=== PATIENT | female | born 2000 | race Caucasian/White ===

== ENCOUNTER 2019-12-27 10:39 | Emergency (ER) | payer MEDICAID, SELFPAY ==
[2019-12-27 11:14] VITALS: BP 105/88; PULSE 70; RESP 18; TEMP 37; O2SAT 99; BMI 20.9
--- NOTE | 2019-12-27 11:22 | HMH.EDUTC ---
[facility] Disposition Clinical Impression: COVID-19 Disposition: Home, Self-Care Condition on Discharge: Good Instructions: Preventing the Spread of Coronavirus Discharge Instructions Additional Instructions: Drink plenty of fluids. Take tylenol for pain or fever. Take the medications as directed. Follow up with your regular doctor. GO TO THE ER FOR ANY WORSENING SYMPTOMS Referrals: Wenceslao Baird [Primary Care Provider] - Time of Disposition: 11:22 Medical Decision Making - Medical Records Medical records reviewed: No: I reviewed the patient's medical records. - Omar Inquiry Pt receiving controlled substance: No Vital Signs: 12/27/19 11:14 12/27/19 11:41 Temperature 98.6 F 98.6 F Temperature Source Oral Oral Pulse Rate 70 Pulse Rate [Radial] 70 Respiratory Rate 18 18 Blood Pressure 105/88 L Blood Pressure [Right Arm] 105/88 L Blood Pressure Mean [Right Arm] 93 Blood Pressure Source Automatic Cuff Blood Pressure Source [Right Arm] Automatic Cuff Blood Pressure Position Sitting Blood Pressure Position [Right Arm] Sitting 02 Sat by Pulse Oximetry 99 Oxygen Delivery Method Room Air Room Air Orders (Tests/Meds): ORDERS Category Date Time Status Covid-19 Nasal PCR Sendout [facility] 12/27/19 11:09 Received [facility] HPI - General Stated complaint: Covid test Time Seen by Provider: 12/27/19 11:22 Mode of Arrival: Ambulatory Source of Information: Patient Limitations: No Limitations Description of Symptoms (Recalled from Triage Doc. by RN): covid test HEENT Symptoms (Recalled from RN notes): No Resp Symptoms (Recalled from RN notes): No Skin Symptoms (Recalled from RN notes): No MS Symptoms (Recalled from RN notes): No Functional Status (Recalled from RN notes): wnl - History of Present Illness Provider Complaint: She was positive for covid last week. She denies any symptoms for the past 4 days. 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 - Related Data Home Medications Medication Instructions Recorded Confirmed No Known Home Medications 08/10/18 08/10/18 Allergies Allergy/AdvReac Type Severity Reaction Status Date / Time No Known Allergies Allergy Verified 08/10/18 10:57 - Worker's Comp Is this a Worker's Comp case?: No [facility] History - Hepatitis A Screen Drug use history?: No High risk sexual behaviors?: No History of sexually transmitted infection?: No Currently employed?: No Childcare worker?: No Do you have indoor plumbing?: Yes Do you have electricity?: Yes Attestation statement:: This patient has been screened for Hepatitis A risk factors. I have reviewed the patient's past medical history: Yes - Social History Smoking Status: Current every day smoker Tobacco Type: cigarettes Alcohol Intake: never Occupational Status: employed Housing: house ROS Obtained: Yes All systems reviewed & no additional complaints - Constitutional Constitutional: Reports system reviewed and no additional complaints, except as docu - Eyes Eyes: Reports system reviewed and no additional complaints, except as docu - ENT Ears, Nose, Mouth, and Throat: Reports system reviewed and no additional complaints, except as docu - Cardiovascular Cardiovascular: Reports system reviewed and no additional complaints, except as docu - Respiratory Respiratory: Yes system reviewed and no additional complaints, except as docu - Gastrointestinal Gastrointestingal: Reports: system reviewed and no additional complaints, except as docu Physical Exam - General General appearance: alert, in no apparent distress - Head Head exam: atraumatic, normocephalic, normal inspection - Eye Eye exam: Present: normal appearance, PERRL, EOMI - ENT ENT exam: Present: normal exam, normal oropharynx, mucous membranes moist, TM's normal bilaterally, normal external ear exam - Neck Neck exam: Present: normal inspection
[2019-12-27 11:41] VITALS: BP 105/88; PULSE 70; RESP 18; TEMP 37; O2SAT 99
[2019-12-28 14:04] LABS: Covid-19 Nasal PCR Sendout Lex Positive
--- NOTE | 2019-12-28 14:31 | PC.NURSE ---
Patient notified of positive COVID results. states that she will not be staying in quarantine because this was a retest.
== END 2019-12-27 11:42 | disposition home or self-care (01) ==
PROVIDERS: Emergency Provider Nurse Practitioner Family; PCP Family Medicine
DX: U07.1 COVID-19 (principal); F17.210 Nicotine dependence, cigarettes, uncomplicated
CPT/HCPCS: 99201; U0004

== ENCOUNTER → 2020-01-30 13:29 | Outpatient (CLI) | payer MEDICAID, SELFPAY ==
--- NOTE | 2020-01-30 13:29 | US_ITS ---
PROCEDURE: US BREAST RT COMPLETE Referring Doctor: Kapil Abbott Patient Age:19Y CLINICAL INDICATION: Palpable lump in RT Breast COMPARISON: CT ABDPELW/O CT ABD PELVIS W/O CONTRAST from 10/27/2015 FINDINGS: Images initially reviewed by Dr. Mahajan with study down dictated by Dr. Parada There is a background of dense breast tissue dense fibrous developing breast character typical for 19-year-old The palpable area right breast 10 o'clock position corresponds with fairly homogeneous solid area which measures overall up to 2.5 cm x 1.4 cm.. There is lobulation along the upper portion of this area. This the most compatible with a benign fibroadenoma with this appearance and this age patient.. Appears to be another smaller fiber adenoma at 11 o'clock but similar homogeneous solid nodule architecture. This 2nd area measures 1.8 cm in length x 7.4 mm. Small benign nodes are seen towards the right axillary region. 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 This measures 2.5 cm x 1.4 cm There is a 2nd smaller solid nodule at 11 o'clock measuring 1.8 cm. Compatible with a 2nd smaller fibroadenoma Dictated by: Torres Parada MD 02/11/2020 12:11 Torres Parada MD in [facility] 02/11/2020 12:11
== END ==
PROVIDERS: PCP Family Medicine; Visit Provider Nurse Practitioner Obstetrics & Gynecology
DX: N63.10 Unspecified lump in the right breast, unspecified quadrant (principal)
CPT/HCPCS: 76641

== ENCOUNTER → 2020-05-05 12:16 | Outpatient (CLI) | payer MEDICAID, SELFPAY ==
--- NOTE | 2020-05-05 13:02 | US_ITS ---
Accession No. : [id number] Patient Name / ID : Avtar Velez / [id number] Exam Date : 05/05/2020 13:02:26 ( Final ) ? ? PROCEDURE: US BIOPSY BREAST RT ? CLINICAL INDICATION: Breast nodule ? ? COMPARISON: US?US BREAST?RT COMPLETE from 01/30/2020 ? ? FINDINGS: ? There are 2 solid nodules in the right breast 1 at 11 o'clock near the nipple and 1 at 10 o'clock in the upper outer aspect. Following time-out procedure using?sonographic guidance and under aseptic technique with 1 percent buffered lidocaine, 18 gauge core biopsies were obtained of each nodule with?sonographic guidance. No immediate complications. ? Pathology: Nodule A: 10 o'clock outer:?Fibroepithelial lesion, favor fibroadenoma. No atypical?ductal hyperplasia in situ or invasive carcinoma. ? Nodule B: Edge o'clock near the nipple:?Stromal fibrosis which may be consistent with fibroadenoma. No atypical?ductal hyperplasia, in situ or invasive carcinoma identified ? IMPRESSION: ? Status post breast biopsy?x2 of the right breast both showing benign findings which may be consistent with fibroadenoma. Please see pathology report. ? Suggest 6 month follow-up to confirm stability. ? Dictated by: Jasvir Mahajan MD 05/06/2020 17:01 Jasvir Mahajan MD in?[facility] 05/06/2020 17:02 ANU
== END ==
PROVIDERS: PCP Family Medicine; Visit Provider Surgery
DX: N63.11 Unspecified lump in the right breast, upper outer quadrant (principal)
CPT/HCPCS: 19083

== ENCOUNTER → 2020-07-03 10:43 | Outpatient (CLI) | payer MEDICAID, SELFPAY ==
--- NOTE | 2020-07-03 10:43 | US_ITS ---
PROCEDURE: US TRANSVAGINAL CLINICAL INDICATION: lower left quadrant pain and pressure COMPARISON: No exams were available for comparison FINDINGS: Uterus is 7 x 4 x 4 cm. Combined endometrial thickness is 3 mm. Uterus is retroverted. No uterine mass evident. Left ovary is 3 x 2 cm. Small follicles are noted. Right ovary is 3 by 2 cm with small follicles noted. Bilateral ovarian blood flow is present. There is a small amount fluid in the cul-de-sac. IMPRESSION: Retroverted uterus with small amount fluid in the cul-de-sac otherwise negative pelvic ultrasound. Dictated by: Jasvir Mahajan MD 07/04/2020 06:50 Jasvir Mahajan MD in [facility] 07/04/2020 06:50
== END ==
PROVIDERS: PCP Family Medicine; Visit Provider Nurse Practitioner Obstetrics & Gynecology
DX: R10.32 Left lower quadrant pain (principal)
CPT/HCPCS: 76830

== ENCOUNTER → 2020-11-09 12:52 | Outpatient (CLI) | payer MEDICAID, SELFPAY ==
--- NOTE | 2020-11-09 12:52 | US_ITS ---
PROCEDURE: US BREAST RT COMPLETE CLINICAL INDICATION: lump COMPARISON: US US BREAST RT COMPLETE from 01/30/2020 US US BIOPSY BREAST RT from 05/05/2020 FINDINGS: There 2 solid nodules present 1 at 10 o'clock and 1 at 11 o'clock. The 10 o'clock nodule measures 2.7 x 1 cm. This is wider than tall with fairly homogeneous echogenicity with through transmission of sound and well-circumscribed without obvious internal calcifications. This is consistent with a fibroadenoma previously biopsied. The AP dimension of the nodule does appear slightly smaller. There is a 2nd nodule at 11 o'clock also well-circumscribed with homogeneous echogenicity and through transmission of sound without obvious calcifications well-circumscribed. This nodule measures 1.6 x 0.6 by 2 cm previously measuring 1.8 x 0.4 by 1.8 cm. This nodule was also biopsy previously with findings which may be consistent with fibroadenoma in the appropriate clinical and radiological setting. No new nodules are evident. IMPRESSION: Two right breast nodules as described above consistent with fibroadenomas. The 11 o'clock nodule may be slightly larger. Continued six-month follow-up suggested. Dictated by: Jasvir Mahajan MD 11/18/2020 10:20 Jasvir Mahajan MD in [place] 11/18/2020 10:20
== END ==
PROVIDERS: PCP Family Medicine; Visit Provider Surgery
DX: D24.1 Benign neoplasm of right breast (principal)
CPT/HCPCS: 76641

== ENCOUNTER → 2022-02-02 13:11 | Outpatient (CLI) | payer SELFPAY ==
[2022-02-02 16:03] LABS: HCG,Quantitative 5560 mIU/ml (0-5.42)
== END ==
PROVIDERS: PCP Family Medicine; Visit Provider Nurse Practitioner Obstetrics & Gynecology
DX: N92.6 Irregular menstruation, unspecified (principal); Z32.00 Encounter for pregnancy test, result unknown
CPT/HCPCS: 36415; 84702

== ENCOUNTER → 2022-03-18 10:41 | Outpatient (CLI) | payer MEDICAID, SELFPAY ==
--- NOTE | 2022-03-18 11:08 | US_ITS ---
FINAL REPORT CLINICAL HISTORY: US OB before 14 wks for DATES FINDINGS: Sonographic images of the pelvis were obtained. A single, living intrauterine is noted. A yolk sac is present and measures 0.83 cm. [place] to rump length measures 48 mm which corresponds to 11 weeks 4 days gestation. Heartbeat is identified and measures 161 beats per minute. There is a questionable [place] contraction posteriorly or possibly a uterine fibroid. The right ovary is within normal limits. The left ovary is within normal limits. IMPRESSION: Single, living, intrauterine gestation with 11 weeks 4 days gestational age. Questionable [place] Mai contraction posteriorly or possibly uterine fibroid Reviewed, Interpreted and Dictated by Isra Abarca III, MD Transcribed by Natalee Duong Authenticated and [facility]
== END ==
PROVIDERS: PCP Family Medicine; Visit Provider Nurse Practitioner Obstetrics & Gynecology
DX: Z34.90 Encounter for supervision of normal pregnancy, unspecified, unspecified trimester (principal); Z3A.11 11 weeks gestation of pregnancy
CPT/HCPCS: 76801

== ENCOUNTER → 2022-04-06 15:27 | Outpatient (CLI) | payer MEDICAID, SELFPAY ==
[2022-04-06 16:45] LABS: Basophils # 0.1 K/mm3 (0-0.2); Basophils % 0.9 % (0.1-2.0); Eosinophils # 0.2 K/mm3 (0.0-0.4); Eosinophils % 1.8 % (0.1-12.0); Hematocrit 42.4 % (37.0-47.0); Hemoglobin 13.6 g/dL (12.2-16.2); Lymphocytes # 2.5 K/mm3 (0.7-4.5); Lymphocytes % 23.8 % (10-50); Mean Corpuscular HGB Conc 32.1 g/dL (31.8-35.4); Mean Corpuscular Volume 93.6 fl (81-99); Mean Platelet Volume 8.2 fl (7.4-10.4); Monocytes # 0.6 K/mm3 (0.1-1.0); Monocytes % 6.1 % (1.7-9.3); Neutrophils # 7.1 K/mm3 (1.8-7.8); Neutrophils % 67.4 % (37.0-80.0); Platelet Count 291 K/mm3 (142-424); Red Blood Count 4.52 M/mm3 (4.20-5.40); White Blood Count 10.5 K/mm3 (4.8-10.8)
[2022-04-08 10:49] LABS: Rubella Antibodies, IgG 1.26 index (Immune >0.99)
[2022-04-08 13:24] LABS: HIV Screen 4th Generation wRfx Non Reactive (Non Reactive); Rapid Plasma Reagin Ab Titer Non Reactive (NonRea<1:1)
[2022-04-09 02:04] LABS: Hepatitis B Surface Antigen Negative
[2022-04-09 02:05] LABS: Hepatitis C Antibody Non Reactive
== END ==
PROVIDERS: PCP Family Medicine; Visit Provider Nurse Practitioner Obstetrics & Gynecology
DX: Z34.90 Encounter for supervision of normal pregnancy, unspecified, unspecified trimester (principal)
CPT/HCPCS: 36415; 85025; 86593; 86703; 86762; 86850; 87340; 87380; G0432

== ENCOUNTER → 2022-05-16 13:11 | Outpatient (CLI) | payer MEDICAID, SELFPAY ==
--- NOTE | 2022-05-16 13:11 | US_ITS ---
FINAL REPORT CLINICAL HISTORY: 20 week anatomy scan please use anatomy template FINDINGS: There is a single live intrauterine gestation. Presentation is cephalic. The cervix is closed and measures 3.4. Placenta is anterior. movement is noted. Cardiac activity is confirmed at 143 beats per minute. Three-vessel cord with satisfactory umbilical cord insertion. Four-chamber heart is noted. brain and ventricles are unremarkable. Chest and diaphragm are unremarkable. ABDOMEN: Both kidneys are unremarkable. Stomach is unremarkable. SPINE: No anomalies identified. Both arms and legs noted. AMNIOTIC FLUID: Appropriate amount. MEASUREMENTS: ULTRASOUND AGE: 19 weeks 6 days. GESTATION AGE: 20 weeks 0 days. ESTIMATED WEIGHT: 299 g GROWTH PERCENTILE: 22% BPD: 4.8 cm consistent with 20 weeks 5 days. OFD: 5.7 cm consistent with 19 weeks 6 days. HC: 16.6 cm consistent with 19 weeks 3 days. AC: 14.1 cm consistent with 19 weeks 4 days. FL: 3.1 cm consistent with 19 weeks 5 days. CEREBELLUM: 2.0 cm consistent with 20 weeks 4 days. HUMERUS: 3.1 cm consistent with 20 weeks 2 days. HC/AC: 1.18 CI: 84% FL/BPD: 64% FL/AC: 22% IMPRESSION: Single living IUP with an ultrasound age of 19 weeks 6 days. No anomalies noted. Reviewed, Interpreted and Dictated by Alexei Toth MD Transcribed by Kyle Babin Authenticated and [facility]
== END ==
PROVIDERS: PCP Family Medicine; Visit Provider Nurse Practitioner Obstetrics & Gynecology
DX: Z34.90 Encounter for supervision of normal pregnancy, unspecified, unspecified trimester (principal); Z3A.20 20 weeks gestation of pregnancy
CPT/HCPCS: 76811

== ENCOUNTER → 2022-06-29 08:47 | Outpatient (CLI) | payer MEDICAID, SELFPAY ==
[2022-06-29 09:18] LABS: Basophils % 0.3 % (0.1-2.0); Eosinophils # 0.2 K/mm3 (0.0-0.4); Eosinophils % 1.5 % (0.1-12.0); Hemoglobin 13.8 g/dL (12.2-16.2); Lymphocytes # 2.3 K/mm3 (0.7-4.5); Mean Corpuscular HGB Conc 33.7 g/dL (31.8-35.4); Mean Corpuscular Hemoglobin 31.2 pg (27.0-31.2); Mean Corpuscular Volume 92.6 fl (81-99); Mean Platelet Volume 8.7 fl (7.4-10.4); Monocytes # 0.6 K/mm3 (0.1-1.0); Monocytes % 3.9 % (1.7-9.3); Neutrophils # 12.3 K/mm3 (1.8-7.8); Neutrophils % 79.4 % (37.0-80.0); Platelet Count 248 K/mm3 (142-424); Red Blood Count 4.43 M/mm3 (4.20-5.40); Red Cell Distribution Width 12.4 % (11.5-17.5); White Blood Count 15.5 K/mm3 (4.8-10.8)
[2022-06-29 09:26] LABS: MANUAL DIFFERENTIAL MANUAL DIFFERENTIAL (MANUAL DIFF)
[2022-06-29 09:30] LABS: Glucose,Fasting 76 mg/dl (74-100)
[2022-06-29 10:02] LABS: Lymphocytes % 25 % (10-50); Monocytes % 4 % (2-9); Neutrophils % 71 % (42-76); Total Cells Counted 100
[2022-06-29 10:03] LABS: Platelet Estimate Normal; RBC Morphology Normal
[2022-06-29 10:59] LABS: Glucose 1 Hour 107 mg/dL (74-100)
== END ==
PROVIDERS: PCP Family Medicine; Visit Provider Nurse Practitioner Obstetrics & Gynecology
DX: Z34.90 Encounter for supervision of normal pregnancy, unspecified, unspecified trimester (principal); Z3A.26 26 weeks gestation of pregnancy
CPT/HCPCS: 36415; 82951; 85007; 85025

== ENCOUNTER 2022-07-05 20:25 | Outpatient (CLI) | payer MEDICAID, SELFPAY ==
[2022-07-05 20:37] VITALS: BMI 24.7
[2022-07-05 20:50] VITALS: BP 131/77; PULSE 73; RESP 17; TEMP 36.8; O2SAT 97; BMI 24.7
[2022-07-05 20:50] LABS: Microscopic, Urine URINE MICROSCOPIC (MICROSCOPIC)
[2022-07-05 20:53] LABS: Appearance,Urine CLEAR (Clear); Blood, Urine Negative (Negative); Color,Urine YELLOW (Yellow); Glucose,Urine (UA) Negative (Negative); Ketones,Urine 2+ (Negative); Leukocyte Esterase,Urine Negative (Negative); Nitrate,Urine Negative (Negative); PH,Urine 6.5 (5.0-8.5); Protein,Urine 2+ (Negative); Specific Gravity, Urine >= 1.030 (1.005-1.030)
[2022-07-05 20:58] LABS: Bilirubin,Urine Negative (Negative)
[2022-07-05 21:04] LABS: Amphetamine/Metha Screen,Urine Negative ng/ml (<1000)
[2022-07-05 21:05] LABS: Barbiturates Screen,Urine Negative ng/ml (<200); Benzodiazepines Screen,Urine Negative ng/ml (<200)
[2022-07-05 21:06] LABS: Cannabinoid Screen,Urine Positive ng/ml (<50)
[2022-07-05 21:07] LABS: Cocaine Screen,Urine Negative ng/ml (<300); Methadone Screen,Urine Negative ng/ml (<300)
[2022-07-05 21:08] LABS: Bacteria,Urine 2+ /lpf; Mucus,Urine Trace /lpf; Opiate Screen,Urine Negative ng/ml (<300); Squamous Epithelial Cell,Urine Occasional #/hpf (0-5); WBC,Urine Occasional #/hpf (0-3)
[2022-07-05 21:09] LABS: Phencyclidine Screen,Urine Negative ng/ml (<25)
== END 2022-07-05 22:18 | disposition home or self-care (01) ==
LOC: OBOUT 20:27 → OB 20:28
PROVIDERS: PCP Family Medicine; Referring Provider Nurse Practitioner Obstetrics & Gynecology; Visit Provider Nurse Practitioner Obstetrics & Gynecology
DX: O26.892 Other specified pregnancy related conditions, second trimester (principal); Z3A.27 27 weeks gestation of pregnancy; R51.9 Headache, unspecified; R11.2 Nausea with vomiting, unspecified
CPT/HCPCS: 59025; 80305; 81001; 87086; 96365; G0463

== ENCOUNTER → 2022-07-27 09:02 | Outpatient (CLI) | payer MEDICAID, SELFPAY ==
--- NOTE | 2022-07-27 09:02 | US_ITS ---
PROCEDURE: US OB BIOPHYSICAL PROFILE CLINICAL INDICATION: sga COMPARISON: Transvaginal ultrasound at 11 weeks. FINDINGS: From her last menstrual period she is 30weeks 4days. The following parameters are obtained: Average ultrasound age is 28weeks 6days. Estimated due date by ultrasound is 10/13/2022. Estimated weight is 2lb 9.97oz. Less than the 2ndpercentile. heart rate: 143bpm bpm. BPD: 27weeks 6days OFD: 27weeks 6days HC: 28 weeks 3 days AC: 27 weeks 2 days FL: 29 weeks 2 days HC/AC: 1.15 Cephalic index: 0.83 FL/BPD: 0.74 FL/AC: 0.24 Amniotic fluid index: 6.21cm Doppler evaluation of the umbilical artery: SD ratio: 3.52 Resistive index: 0.72 No obvious anomalies evident.Four-chamber view is seen and appears normal. Placenta: Anterior grade 2 IMPRESSION: 1. Viable fetus in the cephalic presentation with an anterior placenta grade 2. 2. The fetus is severely asymmetric growth restricted with weight being less than the 2nd percentile. The abdominal circumference is approximately 3 weeks behind. 3. Amniotic fluid is low with the amniotic fluid index of 6.21. 4. SD ratio is slightly elevated at 3.52. 5. Physician was notified about the results. Dictated by: Kapil Abbott MD 07/27/2022 18:35 Kapil Abbott MD in [facility] 07/27/2022 18:35
== END ==
PROVIDERS: PCP Family Medicine; Visit Provider Nurse Practitioner Obstetrics & Gynecology
DX: O36.5930 Maternal care for other known or suspected poor fetal growth, third trimester, not applicable or unspecified (principal); Z3A.31 31 weeks gestation of pregnancy
CPT/HCPCS: 76816; 76819; 76820

== ENCOUNTER → 2022-08-05 09:51 | Outpatient (CLI) | payer MEDICAID, SELFPAY ==
--- NOTE | 2022-08-05 09:54 | US_ITS ---
PROCEDURE: US OB BIOPHYSICAL PROFILE CLINICAL INDICATION: IUGR-SGA with RAYNA COMPARISON: FINDINGS: From her last menstrual period she is 31weeks 6days. There is a viable fetus in the cephalic presentation with an anterior placenta grade 3. The following parameters are obtained: heart rate: 169bpm bpm. Amniotic fluid index: 6.02cm. A maximum vertical pocket of 3.8 cm was measured on the PACS. Qualitative AFV: 2 breathing movements: 2 Gross body movements: 2 Tone: 2 Biophysical profile score: 8 Doppler evaluation of the umbilical artery: SD ratio: 3.7 Resistive index: 0.73 No obvious anomalies evident.Kidneys, three-vessel cord appear normal. Four-chamber view appear normal. Profile appears normal. IMPRESSION: 1. Fetus in the cephalic presentation with a posterior placenta grade 2. 2. THE FLUID IS LOW WITH AN AMNIOTIC FLUID INDEX OF 6.02 cm. 3. SD RATIO IS ELEVATED AT 3.7 4. Biophysical profile is 8/8. Good breathing movement was seen. Baby was active. Dictated by: Kapil Abbott MD 08/06/2022 15:00 Kapil Abbott MD in [facility] 08/06/2022 15:00
== END ==
PROVIDERS: PCP Family Medicine; Visit Provider Nurse Practitioner Obstetrics & Gynecology
DX: O36.5930 Maternal care for other known or suspected poor fetal growth, third trimester, not applicable or unspecified (principal); Z3A.31 31 weeks gestation of pregnancy
CPT/HCPCS: 76819; 76820

== ENCOUNTER 2022-08-08 09:46 | Outpatient (CLI) | payer MEDICAID, SELFPAY ==
[2022-08-08 10:15] VITALS: BP 102/63; PULSE 82; RESP 18; O2SAT 97
== END 2022-08-08 10:15 | disposition home or self-care (01) ==
LOC: INF 09:47
PROVIDERS: PCP Family Medicine; Visit Provider Nurse Practitioner Obstetrics & Gynecology
DX: O36.8930 Maternal care for other specified fetal problems, third trimester, not applicable or unspecified (principal); Z3A.32 32 weeks gestation of pregnancy
CPT/HCPCS: 96372

== ENCOUNTER 2022-08-09 11:24 | Outpatient (CLI) | payer MEDICAID, SELFPAY ==
[2022-08-09 11:47] VITALS: BP 113/78; PULSE 105; RESP 18; O2SAT 99
== END 2022-08-09 11:50 | disposition home or self-care (01) ==
LOC: INF 11:25
PROVIDERS: PCP Family Medicine; Visit Provider Obstetrics & Gynecology
DX: O36.5930 Maternal care for other known or suspected poor fetal growth, third trimester, not applicable or unspecified (principal); Z3A.32 32 weeks gestation of pregnancy
CPT/HCPCS: 96372

== ENCOUNTER 2022-08-15 14:46 | Outpatient (CLI) | payer MEDICAID, SELFPAY ==
[2022-08-15 14:52] VITALS: BMI 24.7
[2022-08-15 15:01] LABS: Microscopic, Urine URINE MICROSCOPIC (MICROSCOPIC)
[2022-08-15 15:12] LABS: Appearance,Urine CLEAR (Clear); Bilirubin,Urine Negative (Negative); Blood, Urine Negative (Negative); Color,Urine YELLOW (Yellow); Glucose,Urine (UA) Negative (Negative); Ketones,Urine Negative (Negative); Leukocyte Esterase,Urine Negative (Negative); Nitrate,Urine Negative (Negative); PH,Urine 6.5 (5.0-8.5); Protein,Urine Negative (Negative); Specific Gravity, Urine <= 1.005 (1.005-1.030); Urobilinogen,Urine 0.2 EU/dl (0.2)
--- NOTE | 2022-08-15 15:18 | US_ITS ---
PROCEDURE: US OB BIOPHYSICAL PROFILE CLINICAL INDICATION: IUGR COMPARISON: FINDINGS: From her established due date she is 33weeks 2days. The following parameters are obtained: Amniotic fluid index: 6.76cm Qualitative AFV: 2 breathing movements: 2 Gross body movements: 2 Tone: 2 Biophysical profile score: 8 No obvious anomalies evident.Kidneys, three-vessel cord appear normal. Four-chamber view appears normal. Diaphragm normal. Placenta: Anterior grade 2-3 IMPRESSION: 1. Fetus in the cephalic presentation with an anterior placenta grade 2- 3. 2. Biophysical profile 8/8. Good breathing movement was seen. 3. The amniotic fluid is low with an amniotic fluid index of 6.76 cm. 4. Limited anatomical scan appears normal. Dictated by: Kapil Abbott MD 08/15/2022 19:48 Kapil Abbott MD in [facility] 08/15/2022 19:48
[2022-08-15 15:24] VITALS: BMI 24.7
[2022-08-15 15:24] LABS: Benzodiazepines Screen,Urine Negative ng/ml (<200)
[2022-08-15 15:25] LABS: Amphetamine/Metha Screen,Urine Negative ng/ml (<1000)
[2022-08-15 15:26] LABS: Barbiturates Screen,Urine Negative ng/ml (<200); Cannabinoid Screen,Urine Negative ng/ml (<50)
[2022-08-15 15:27] LABS: Cocaine Screen,Urine Negative ng/ml (<300)
[2022-08-15 15:28] LABS: Methadone Screen,Urine Negative ng/ml (<300); Opiate Screen,Urine Negative ng/ml (<300)
[2022-08-15 15:29] LABS: Phencyclidine Screen,Urine Negative ng/ml (<25)
[2022-08-15 15:34] LABS: Bacteria,Urine Trace /lpf; Squamous Epithelial Cell,Urine Occasional #/hpf (0-5); WBC,Urine Occasional #/hpf (0-3)
== END 2022-08-15 16:38 | disposition home or self-care (01) ==
LOC: OBOUT 14:47 → OB 14:48
PROVIDERS: PCP Family Medicine; Visit Provider Obstetrics & Gynecology
DX: O36.5930 Maternal care for other known or suspected poor fetal growth, third trimester, not applicable or unspecified (principal); Z3A.33 33 weeks gestation of pregnancy
CPT/HCPCS: 59025; 76819; 80305; 81001; 96365; G0463

== ENCOUNTER → 2022-08-17 11:22 | Outpatient (CLI) | payer MEDICAID, SELFPAY ==
--- NOTE | 2022-08-17 11:24 | US_ITS ---
PROCEDURE: US OB BIOPHYSICAL PROFILE CLINICAL INDICATION: sga, iugr COMPARISON: Ultrasound done 07/27/2022 FINDINGS: From her established due date she is 33weeks 4days. The following parameters are obtained: Viable fetus in the cephalic presentation with an anterior placenta grade 2- 3. Average ultrasound age is 31weeks 1day. Estimated due date by ultrasound is 10/18/2022. Estimated weight is 3lb 9.57oz, 1,620 grams. Less than the 2ndpercentile. heart rate: 158bpm bpm. BPD: 30weeks 5days OFD: 30weeks 5days HC: 31 weeks 0 days AC: 30 weeks 1 day FL: 31 weeks 3 days HC/AC: 1.09 Cephalic index: 0.8 FL/BPD: 0.76 FL/AC: 0.23 Amniotic fluid index: 6.89cm Qualitative AFV: 2 breathing movements: 2 Gross body movements: 2 Tone: 2 Biophysical profile score: 8 Doppler evaluation of the umbilical artery: SD ratio: 3.40 Resistive index: 0.706 No obvious anomalies evident.Kidneys, three-vessel cord appear normal. Bladder appears normal, stomach appears normal. IMPRESSION: 1. Viable fetus in the cephalic presentation with an anterior placenta grade 2-3 2. The fluid is low with an amniotic fluid index of 6.89 cm. This is less than the 2.5 percentile for gestational age. 3. There is a 4.4 cm x 4.5 cm pocket of fluid. 4. The abdominal circumference continues to be 3 weeks behind. 5. THE GROWTH LESS THAN THE 2ND PERCENTILE. 6. SD ratio is normal at 3.4. 7. Biophysical profile is 8/8 with good breathing movement seen. Dictated by: Kapil Abbott MD 08/17/2022 14:31 Kapil Abbott MD in [place] 08/17/2022 14:31
== END ==
PROVIDERS: PCP Family Medicine; Visit Provider Nurse Practitioner Obstetrics & Gynecology
DX: O36.5930 Maternal care for other known or suspected poor fetal growth, third trimester, not applicable or unspecified (principal); Z3A.33 33 weeks gestation of pregnancy
CPT/HCPCS: 76816; 76819; 76820

== ENCOUNTER → 2022-09-01 08:00 | Outpatient (CLI) | payer MEDICAID, SELFPAY ==
--- NOTE | 2022-09-01 08:03 | US_ITS ---
PROCEDURE: US OB BIOPHYSICAL PROFILE CLINICAL INDICATION: sga COMPARISON: Ultrasound 08/17/2022 FINDINGS: From her established due date she is 35weeks 5days. The following parameters are obtained: Viable fetus in the cephalic presentation with anterior placenta grade 3. Average ultrasound age is 32weeks 5days. Estimated due date by ultrasound is 10/22/2022. Estimated weight is 4lb 3.49oz. Less than 2percentile. heart rate: 170bpm bpm. BPD: 33 weeks 5 days OFD: 30 weeks 0 days HC: 32 weeks 3 days AC: 31 weeks 0 days FL: 33 weeks 5 days HC/AC: 1.09 Cephalic index: FL/BPD: 0.78 FL/AC: 0.24 Amniotic fluid index: 7.46cm Qualitative AFV: 2 breathing movements: 2 Gross body movements: 2 Tone: 2 Biophysical profile score: 8 Doppler evaluation of the umbilical artery: SD ratio: 2.9 Resistive index: 0.66 No obvious anomalies evident.Kidneys, three-vessel cord appear normal. Four-chamber view appears normal. IMPRESSION: 1. Viable fetus in the cephalic presentation with an anterior placenta grade 3. 2. Fluid is slightly low at 7.46 cm. 3. Biophysical profile 8/8 with good breathing movement seen. 4. SD ratios are normal. 5. The growth seems to be plateauing and the AC is falling off the growth scale the most. AC is 4 + weeks behind. Dictated by: Kapil Abbott MD 09/02/2022 08:07 Kapil Abbott MD in [place] 09/02/2022 08:07
== END ==
PROVIDERS: PCP Family Medicine; Visit Provider Nurse Practitioner Obstetrics & Gynecology
DX: O36.5930 Maternal care for other known or suspected poor fetal growth, third trimester, not applicable or unspecified (principal); Z3A.32 32 weeks gestation of pregnancy
CPT/HCPCS: 76816; 76819; 76820; 86403

== ENCOUNTER → 2022-09-01 18:01 | Outpatient (CLI) | payer MEDICAID, SELFPAY | PROVIDERS: PCP Family Medicine; Visit Provider Nurse Practitioner Obstetrics & Gynecology | DX: Z34.90 Encounter for supervision of normal pregnancy, unspecified, unspecified trimester (principal) ==

== ENCOUNTER 2023-04-17 09:45 | Outpatient (CLI) | payer MEDICAID, SELFPAY ==
[2023-04-17 11:19] LABS: HCG,Quantitative 198110 mIU/ml (0-5.42)
[2023-04-18 09:18] LABS: Progesterone 30.1 ng/mL (.)
== END 2023-04-17 23:59 ==
LOC: LAB 09:46
PROVIDERS: PCP Family Medicine; Visit Provider Nurse Practitioner Obstetrics & Gynecology
DX: Z32.00 Encounter for pregnancy test, result unknown (principal)
CPT/HCPCS: 36415; 84144; 84702

== ENCOUNTER 2023-05-18 16:20 | Outpatient (CLI) | payer MEDICAID, SELFPAY | END 2023-05-18 23:59 | LOC: LAB.DROPOF 16:20 | PROVIDERS: PCP Nurse Practitioner Obstetrics & Gynecology; Visit Provider Nurse Practitioner Obstetrics & Gynecology | DX: O26.892 Other specified pregnancy related conditions, second trimester (principal); Z3A.15 15 weeks gestation of pregnancy; B96.89 Other specified bacterial agents as the cause of diseases classified elsewhere | CPT/HCPCS: 87086 ==

== ENCOUNTER 2023-05-22 10:16 | Outpatient (CLI) | payer MEDICAID, SELFPAY ==
--- NOTE | 2023-05-22 10:22 | US_ITS ---
PROCEDURE: US OB >= 14 WEEKS FETUS CLINICAL INDICATION: for dates COMPARISON: No exams were available for comparison FINDINGS: Transabdominal sonographic images of the uterus were obtained. From her established due date she is 16weeks 0 days. The following parameters are obtained: Viable Fetus in the cephalic presentation with an anterior placenta grade 1. Average ultrasound age is 15weeks 2days Estimated weight 117g Cervix measures 4.93 cm. Measurements: heart Rate = 149bpm BPD = 15weeks 3days HC = 15weeks 2days AC = 15weeks 3days FL = 15weeks 0 days HC/AC is 1.18 FL/BPD is 0.56 FL/AC is 0.18 6 percentile Amniotic fluid index: Fluid appears normal. No obvious anomalies evident.Cord insertion, four-chamber heart, three-vessel cord appear normal. IMPRESSION: 1. Viable fetus in the cephalic presentation with an anterior placenta grade 1. 2. The fluid is within normal limits. 3. The fetus measures slightly smaller than her dates but it is still within 5 days so we will not change her due date at this point in time. The due date will remain 11/06/2023. 4. Limited anatomical scan appears normal. Dictated by: Kapil Abbott MD 05/22/2023 12:06 Kapil Abbott MD in [place] 05/22/2023 12:06
== END 2023-05-22 23:59 ==
LOC: RAD 10:16
PROVIDERS: PCP Family Medicine; Visit Provider Nurse Practitioner Obstetrics & Gynecology
DX: O26.892 Other specified pregnancy related conditions, second trimester (principal); Z3A.15 15 weeks gestation of pregnancy
CPT/HCPCS: 76805

== ENCOUNTER 2023-06-19 14:14 | Outpatient (CLI) | payer MEDICAID, SELFPAY ==
--- NOTE | 2023-06-19 14:38 | US_ITS ---
PROCEDURE: US OB >= 14 WEEKS FETUS CLINICAL INDICATION: US OB 20wk+ Anatomy Scan COMPARISON: US US OB >= 14 WEEKS FETUS from 05/22/2023 FINDINGS: Transabdominal sonographic images of the pelvis were obtained. From her established due date she is 20 weeks 0 days. Single viable intrauterine gestation. Breech position. Placenta: Anteriorplacenta grade 1. There is an average amount of fluid. The cervix appears satisfactory. Closed and measuring 4.0 cm in length. Complete survey performed and was unremarkable on the submitted images as in PACS. No discrete anomalies identified on survey imaging by technologist. Active fetus. Three-vessel cord with satisfactory umbilical cord insertion. 4- chamber heart noted. [place], aortic arch, LVOT, RVOT, three-vessel view appear normal. Survey of brain & ventricles Unremarkable. Cerebellum, thalamus, choroid plexus, cisterna magna appear normal. Face and neck survey unremarkable. Profile, nasion, lips and nose appeared normal. Diaphragm and chest views unremarkable. Abdomen: Both kidneys noted and unremarkable. Stomach and bladder noted and satisfactory. Spine: Survey of the spine satisfactory with no anomalies identified nor imaged. Cervical, thoracic, lower spine appear normal. Both arms and legs noted. Amniotic Fluid: Adequate. Measurements: Average ultrasound age 19weeks 1day. Estimated due date by ultrasound age 0911/12/2023. Estimated weight 288g BPD = 19weeks 0 days HC = 18weeks 3days AC = 19weeks 4days FL = 19weeks 4days Growth Percentile= 15 Heart Rate = 144bpm Cerebellum = 18weeks 5days HC/AC is 1.09 FL/BPD is 0.72 FL/AC is 0.22 IMPRESSION: 1. Viable fetus in the breech presentation with an anterior placenta grade 1. 2. The fluid is within normal limits. 3. Anatomical scan appears normal. 4. biometry is consistent with the dates. Dictated by: Kapil Abbott MD 06/19/2023 17:13 Kapil Abbott MD in [place] 06/19/2023 17:13
[2023-06-19 14:59] LABS: Basophils % 0.3 % (0.1-2.0); Eosinophils # 0.2 K/mm3 (0.0-0.4); Eosinophils % 1.5 % (0.1-12.0); Hematocrit 36.7 % (37.0-47.0); Hemoglobin 12.2 g/dL (12.2-16.2); Lymphocytes # 1.6 K/mm3 (0.7-4.5); Lymphocytes % 15.8 % (10-50); Mean Corpuscular HGB Conc 33.2 g/dL (31.8-35.4); Mean Corpuscular Hemoglobin 31.4 pg (27.0-31.2); Mean Corpuscular Volume 94.7 fl (81-99); Mean Platelet Volume 8.5 fl (7.4-10.4); Monocytes # 0.4 K/mm3 (0.1-1.0); Monocytes % 4.1 % (1.7-9.3); Neutrophils # 7.8 K/mm3 (1.8-7.8); Neutrophils % 78.3 % (37.0-80.0); Platelet Count 220 K/mm3 (142-424); Red Blood Count 3.87 M/mm3 (4.20-5.40); Red Cell Distribution Width 13.1 % (11.5-17.5); White Blood Count 9.9 K/mm3 (4.8-10.8)
[2023-06-21 07:54] LABS: HIV Screen 4th Generation wRfx Non Reactive (Non Reactive)
[2023-06-21 09:13] LABS: Rubella Antibodies, IgG 1.02 index (Immune >0.99)
[2023-06-21 13:17] LABS: Rapid Plasma Reagin Ab Titer Non Reactive titer (NonRea<1:1)
[2023-06-22 15:49] LABS: Hepatitis B Surface Antigen Negative; Hepatitis C Antibody Non Reactive
== END 2023-06-19 23:59 | disposition home or self-care (01) ==
LOC: RAD 14:15
PROVIDERS: PCP Family Medicine; Visit Provider Nurse Practitioner Obstetrics & Gynecology
DX: O26.892 Other specified pregnancy related conditions, second trimester (principal); Z3A.20 20 weeks gestation of pregnancy; Z36.3 Encounter for antenatal screening for malformations
CPT/HCPCS: 36415; 76805; 85025; 86593; 86703; 86762; 86850; 87340; 87380; G0432

== ENCOUNTER 2023-08-24 10:55 | Outpatient (CLI) | payer MEDICAID, SELFPAY ==
[2023-08-24 11:27] LABS: Basophils % 0.4 % (0.1-2.0); Eosinophils # 0.1 K/mm3 (0.0-0.4); Hematocrit 35.9 % (37.0-47.0); Lymphocytes # 1.9 K/mm3 (0.7-4.5); Lymphocytes % 18.9 % (10-50); Mean Corpuscular HGB Conc 33.5 g/dL (31.8-35.4); Mean Corpuscular Hemoglobin 31.6 pg (27.0-31.2); Mean Corpuscular Volume 94.4 fl (81-99); Mean Platelet Volume 9.1 fl (7.4-10.4); Monocytes # 0.5 K/mm3 (0.1-1.0); Monocytes % 4.6 % (1.7-9.3); Neutrophils # 7.6 K/mm3 (1.8-7.8); Neutrophils % 75.1 % (37.0-80.0); Platelet Count 216 K/mm3 (142-424); Red Cell Distribution Width 12.7 % (11.5-17.5); White Blood Count 10.2 K/mm3 (4.8-10.8)
[2023-08-24 11:44] LABS: Glucose,Fasting 74 mg/dl (74-100)
[2023-08-24 12:40] LABS: Glucose 1 Hour 100 mg/dL (74-100)
== END 2023-08-24 23:59 | disposition home or self-care (01) ==
LOC: LAB 10:56
PROVIDERS: PCP Family Medicine; Visit Provider Nurse Practitioner Obstetrics & Gynecology
DX: Z34.90 Encounter for supervision of normal pregnancy, unspecified, unspecified trimester (principal)
CPT/HCPCS: 36415; 82951; 85025

== ENCOUNTER 2023-09-13 09:32 | Outpatient (CLI) | payer MEDICAID, SELFPAY ==
--- NOTE | 2023-09-13 09:38 | US_ITS ---
PROCEDURE: US OB BIOPHYSICAL PROFILE CLINICAL INDICATION: SGA COMPARISON: US US OB >= 14 WEEKS FETUS from 05/22/2023 US US OB >= 14 WEEKS FETUS from 06/19/2023 FINDINGS: Transabdominal sonographic images of the uterus were obtained. From her established due date she is 32weeks 2days. The following parameters are obtained: Viable Fetus in the cephalic presentation with and anterior placenta grade 2-3. Average ultrasound age is 31weeks 2days Estimated weight 1,694g, 3 lb 12 oz Cervix measures 2.71-3.0 cm. Measurements: heart Rate = 130bpm BPD = 31weeks 2days, 14 percentile HC = 31weeks 2days, 3 percentile AC = 30weeks 5days, 9 percentile FL = 31weeks 6days, 24 percentile HC/AC is 1.08 FL/BPD is 0.79 FL/AC is 0.23 11 percentile Amniotic fluid index: 12.21cm, MVP 3.90 cm. Qualitative AFV:2 Breathing movements: 2 Gross Body Movements: 2 Tone: 2 Biophysical profile score: 8 Doppler evaluation of the umbilical artery: SD ratio: 2.72-3.24. Resistive index: 0.69 No obvious anomalies evident.Kidneys, bladder, stomach, four-chamber heart, three-vessel cord appear normal. IMPRESSION: 1. Viable fetus in the cephalic presentation with an anterior placenta grade 2-3. 2. The fluid is within normal limits with an amniotic fluid index of 12.21 cm, MVP 3.90 cm. 3. Biophysical profile 8/8 with good breathing movement and movement seen. 4. SD ratio normal 2.72-3.24. 5. Fetus has shown good interval growth and today is at the 11th percentile. Dictated by: Kapil Abbott MD 09/13/2023 14:18 Kapil Abbott MD in [place] 09/13/2023 14:18
== END 2023-09-13 23:59 | disposition home or self-care (01) ==
LOC: RAD 09:33
PROVIDERS: PCP Family Medicine; Visit Provider Nurse Practitioner Obstetrics & Gynecology
DX: O36.5930 Maternal care for other known or suspected poor fetal growth, third trimester, not applicable or unspecified (principal); Z3A.32 32 weeks gestation of pregnancy
CPT/HCPCS: 76816; 76819; 76820

== ENCOUNTER 2023-10-03 10:39 | Outpatient (CLI) | payer MEDICAID, SELFPAY ==
--- NOTE | 2023-10-03 10:44 | US_ITS ---
PROCEDURE: US OB BIOPHYSICAL PROFILE CLINICAL INDICATION: sga COMPARISON: US US OB >= 14 WEEKS FETUS from 05/22/2023 US US OB >= 14 WEEKS FETUS from 06/19/2023 US US OB BIOPHYSICAL PROFILE from 09/13/2023 FINDINGS: Transabdominal sonographic images of the uterus were obtained. From her established due date she is 35weeks 1day. The following parameters are obtained: Viable Fetus in the cephalic presentation with an anterior placenta grade 3. Average ultrasound age is 32weeks 6days Estimated weight 2,049g, 4 lb 8 oz Cervix measures 3.8 cm. Measurements: heart Rate = 161bpm BPD = 32weeks 5days, 3rd percentile HC = 32weeks 3days,< 2 percentile AC = 33weeks 0 days, 6 percentile FL = 32weeks 6days, 3 percentile HC/AC is 1.02 FL/BPD is 0.78 FL/AC is 0.22 4 percentile Amniotic fluid index: 8.22cm, MVP 3.40 cm. Qualitative AFV:2 Breathing movements: 2 Gross Body Movements: 2 Tone: 2 Biophysical profile score: 8 Doppler evaluation of the umbilical artery: SD ratio: 3.12-3.27 Resistive index: 0.68 No obvious anomalies evident.Kidneys, profile, bladder, stomach, four-chamber heart, three-vessel cord appear normal. IMPRESSION: 1. Viable fetus in the cephalic presentation with an anterior placenta grade 3. 2. The fluid is within normal limits with amniotic fluid index of 8.22 cm, MVP 3.40 cm. 3. Biophysical profile 09/20 with good breathing movement and movement seen. 4. Fetus continues to be globally small for gestational age and has fallen off somewhat from its growth. It is now 4th percentile. The fetus is about 2 weeks behind on its growth. 5. SD ratio slightly elevated at 75th-90th percentile 3.12-3.27. 6. Limited anatomical scan appears normal. Dictated by: Kapil Abbott MD 10/03/2023 16:44 Kapil Abbott MD in [place] 10/03/2023 16:44
== END 2023-10-03 23:59 | disposition home or self-care (01) ==
LOC: RAD 10:39
PROVIDERS: PCP Family Medicine; Visit Provider Nurse Practitioner Obstetrics & Gynecology
DX: O36.5990 Maternal care for other known or suspected poor fetal growth, unspecified trimester, not applicable or unspecified (principal)
CPT/HCPCS: 76816; 76819; 76820

== ENCOUNTER 2023-10-04 11:38 | Outpatient (CLI) | payer MEDICAID, SELFPAY | END 2023-10-04 23:59 | disposition home or self-care (01) | LOC: LAB.DROPOF 10-05 11:38 | PROVIDERS: PCP Nurse Practitioner Obstetrics & Gynecology; Visit Provider Nurse Practitioner Obstetrics & Gynecology | DX: Z34.90 Encounter for supervision of normal pregnancy, unspecified, unspecified trimester (principal) | CPT/HCPCS: 86403 ==

== ENCOUNTER 2023-10-04 11:55 | Outpatient (CLI) | payer MEDICAID, SELFPAY ==
[2023-10-04] MEDS: BETAMETHASONE ACET/PHOS 6MG/ML 5ML MDV 12 MG IM (12:19)
[2023-10-04 12:25] VITALS: BP 129/76; PULSE 81; RESP 18; O2SAT 100
== END 2023-10-04 12:30 | disposition home or self-care (01) ==
LOC: INF 11:56
PROVIDERS: PCP Family Medicine; Visit Provider Nurse Practitioner Obstetrics & Gynecology
DX: O36.5990 Maternal care for other known or suspected poor fetal growth, unspecified trimester, not applicable or unspecified (principal); Z3A.34 34 weeks gestation of pregnancy
CPT/HCPCS: 96372; J0702

== ENCOUNTER 2023-10-05 12:32 | Outpatient (CLI) | payer MEDICAID, SELFPAY ==
[2023-10-05 12:50] VITALS: BP 105/71; PULSE 77; RESP 18; TEMP 36.6; O2SAT 100
[2023-10-05] MEDS: BETAMETHASONE ACET/PHOS 6MG/ML 5ML MDV 12 MG IM (12:50)
== END 2023-10-05 13:01 | disposition home or self-care (01) ==
LOC: INF 12:33
PROVIDERS: PCP Family Medicine; Visit Provider Nurse Practitioner Obstetrics & Gynecology
DX: O36.5930 Maternal care for other known or suspected poor fetal growth, third trimester, not applicable or unspecified (principal); Z3A.34 34 weeks gestation of pregnancy
CPT/HCPCS: 96372; J0702

== ENCOUNTER 2023-10-08 14:53 | Emergency (ER) | payer MEDICAID, SELFPAY ==
[2023-10-08 14:54] VITALS: BP 123/87; PULSE 89; RESP 16; TEMP 36.7; O2SAT 96; BMI 26.7
--- NOTE | 2023-10-08 15:06 | EXP.UTC ---
Discharge Plan Disposition Patient Disposition: Home, Self-Care Condition: Good Prescriptions Prescriptions: New amoxicillin 875 mg tablet 875 mg PO Q12H Qty: 20 0RF No Action famotidine [Pepcid] 20 mg tablet 20 mg PO DAILY Qty: 30 6RF Classic 28 mg iron- 800 mcg tablet 1 tab PO DAILY Qty: 30 11RF ferrous sulfate 325 mg (65 mg iron) tablet 325 mg PO DAILY Qty: 30 11RF Referrals Follow up/Referrals: Wenceslao Baird [Primary Care Provider] - See instructions Activity Restrictions/Add. Instructions Additional Instructions/Restrictions: Take tylenol for pain. Take the amoxicillin as directed. Follow up with your regular doctor. Follow up with your dentist as discussed. GO TO THE ER FOR ANY WORSENING SYMPTOMS Clinical Impressions Clinical Impression: Dental abscess, Pain, dental Instructions Patient Instructions: DI for Tooth Abscess, Amoxicillin Print Language Print Language: Malay Discharge ED Provider: Jamir Singh [facility] General Stated complaint: toothache Time Seen by Provider: 10/08/23 15:05 History of Present Illness Provider Complaint: She states that for the past few days she has developed dental pain and redness of her gums of her left upper jaw. She is 32 weeks also. Related Data Previous Rx's ?Medication ?Instructions ?Recorded vits no.126-ferrous fum 1 tab PO DAILY #30 tabs 03/02/22 28 mg iron-folic acid 800 mcg tablet (Classic ) ferrous sulfate 325 mg (65 mg 325 mg PO DAILY #30 tabs 06/13/23 iron) tablet famotidine 20 mg tablet (Pepcid) 20 mg PO DAILY #30 tabs 08/01/23 amoxicillin 875 mg tablet 875 mg PO Q12H #20 tabs 10/08/23 Allergies Allergy/AdvReac Type Severity Reaction Status Date / Time No Known Allergies Allergy Verified 10/05/23 12:59 [facility] Disclaimer: The information contained in this section may have been updated after the patient was seen, as this information can be updated by other users. Medical History Positive home test Surgical History H/O hernia repair Family History Other Anemia Cancer FHx: mental illness Hypertension Substance abuse Social History (Updated 10/05/23 @ 12:59 by Jonas Garg, OCHOA) Smoking Status: Former smoker tobacco type: cigarettes alcohol intake: never substance use type: marijuana current occupational status: other Travel in the last 8 weeks: None housing: house ROS Obtained: Yes All systems reviewed & no additional complaints except as documented Constitutional Constitutional: Denies chills and Denies fever(s) Eyes Eyes: Denies eye discharge ENT Ears, Nose, Mouth, and Throat: Reports as per HPI, Denies dizziness, Denies otalgia and Denies sore throat Cardiovascular Cardiovascular: Denies chest pain Respiratory Respiratory: Denies shortness of breath, Denies chest congestion, Denies cough, Denies stridor and Denies wheezing Gastrointestinal Gastrointestingal: Denies nausea or vomiting Musculoskeletal Musculoskeletal: Reports system reviewed and no additional complaints, except as documented and Denies arthralgias Integumentary/Breasts Skin/Breast: Denies rash Neurologic Neurologic: Denies dizziness and Denies paresthesias Allergic/Immunologic Allergic/Immunologic: Denies wheezing Physical Exam General General appearance: alert and in no apparent distress Head Head exam: atraumatic, normocephalic and normal inspection Eye Eye exam: Present normal appearance, PERRL and EOMI ENT ENT exam: Present mucous membranes moist, TM's normal bilaterally and normal external ear exam Expanded ENT Exam Nose exam: Absent sinus tenderness Nasal speculum exam: Bilateral: normal Mouth exam: Present n
[2023-10-08 15:52] VITALS: BP 123/87; PULSE 89; RESP 16; TEMP 36.7; O2SAT 96
== END 2023-10-08 15:53 | disposition home or self-care (01) ==
PROVIDERS: Emergency Provider Nurse Practitioner Family; PCP Family Medicine
DX: K04.7 Periapical abscess without sinus (principal); K08.89 Other specified disorders of teeth and supporting structures
CPT/HCPCS: 99204; 99212; G0463

== ENCOUNTER 2023-10-17 13:43 | Outpatient (CLI) | payer MEDICAID, SELFPAY ==
--- NOTE | 2023-10-17 13:46 | US_ITS ---
PROCEDURE: US OB BIOPHYSICAL PROFILE CLINICAL INDICATION: SGA COMPARISON: US US OB >= 14 WEEKS FETUS from 05/22/2023 US US OB >= 14 WEEKS FETUS from 06/19/2023 US US OB BIOPHYSICAL PROFILE from 09/13/2023 US US OB BIOPHYSICAL PROFILE from 10/03/2023 FINDINGS: Transabdominal sonographic images of the uterus were obtained. From her established due date she is 37weeks 1day. The following parameters are obtained: Viable Fetus in the cephalic presentation with and anterior placenta grade 3. Average ultrasound age is 34weeks 5days Estimated weight 2,424g, 5 lb 6 oz Cervix measures 3.10 cm. Measurements: heart Rate = 142bpm BPD = 35weeks 0 days, 12 percentile HC = 34weeks 6days, <2 percentile AC = 34weeks 4days, 5 percent FL = 34weeks 0 days, <2 percentile HC/AC is 1.02 FL/BPD is 0.76 FL/AC is 0.22 5 percentile Amniotic fluid index: 12.84cm, MVP 3.39 cm Qualitative AFV:2 Breathing movements: 2 Gross Body Movements: 2 Tone: 2 Biophysical profile score: 8 Doppler evaluation of the umbilical artery: SD ratio: 3.26, > 90th percentile Resistive index: 0.69, >90th percentile No obvious anomalies evident.Kidneys, bladder, stomach, four-chamber heart, three-vessel cord appear normal. IMPRESSION: 1. Viable fetus in the cephalic presentation with an anterior placenta grade 3. 2. The fluid is within normal limits with an amniotic fluid index of 12.84 cm, MVP 3.39 cm. 3. Biophysical profile is 8/8 with good breathing movement and movement seen. 4. SD ratio is 3.26 and elevated and is greater than 90th percentile. 5. Fetus is currently globally small with the AC 3 weeks behind. 6. Limited anatomical scan appears normal. Dictated by: Kapil Abbott MD 10/17/2023 15:10 Kapil Abbott MD in [place] 10/17/2023 15:10
== END 2023-10-17 23:59 | disposition home or self-care (01) ==
LOC: RAD 13:44
PROVIDERS: PCP Family Medicine; Visit Provider Nurse Practitioner Obstetrics & Gynecology
DX: O36.5930 Maternal care for other known or suspected poor fetal growth, third trimester, not applicable or unspecified (principal)
CPT/HCPCS: 76816; 76819; 76820